=== PATIENT | male | born 1970 | race American Indian/Alaskan Native ===

== ENCOUNTER 2019-01-14 07:00 | Emergency (ER) | payer SELFPAY ==
[2019-01-14 08:02] LABS: Basophils # (Auto) 0.1 K/mm3 (0.0-0.1); Basophils % (Auto) 0.9 % (0.0-1.8); Eosinophils # (Auto) 0.1 K/mm3 (0.0-0.4); Eosinophils % (Auto) 1.1 % (0.0-4.3); Hematocrit 45.9 % (35.5-45.6); Hemoglobin 14.6 gm/dl (11.8-15.2); Lymphocytes # (Auto) 2.6 K/mm3 (1.2-5.4); Lymphocytes % (Auto) 23.2 % (13.4-35.0); Mean Corpuscular HGB Conc 32 % (32-34); Mean Corpuscular Volume 75 fl (84-94); Monocytes # (Auto) 0.9 K/mm3 (0.0-0.8); Monocytes % (Auto) 8.2 % (0.0-7.3); Platelet Count 263 K/mm3 (140-440); Red Blood Count 6.12 M/mm3 (3.65-5.03); Red Cell Distribution Width 16.3 % (13.2-15.2)
[2019-01-14 08:17] LABS: BUN/Creatinine Ratio 10; Blood Urea Nitrogen 11 mg/dL (9-20); Hemolysis Index 59
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
[2019-01-14 08:19] LABS: Bilirubin,Urine NEG (Negative); Color,Urine Yellow (Yellow)
[2019-01-14 08:20] LABS: Blood,Urine SM (Negative); Mucus,Urine FEW /HPF; Urobilinogen,Urine < 2.0 mg/dL (<2.0)
[2019-01-14 08:25] LABS: Amphetamine Screen,Urine PRESUMPTIVE NEGATIVE; Benzodiazepines Screen,Urine PRESUMPTIVE NEGATIVE; Methadone Screen,Urine PRESUMPTIVE NEGATIVE; Opiate Screen,Urine PRESUMPTIVE NEGATIVE
[2019-01-14 08:45] LABS: Cannabinoid Screen,Urine PRESUMPTIVE POSITIVE; Cocaine Screen,Urine PRESUMPTIVE POSITIVE
[2019-01-14] MEDS ORDERED: METOPROLOL PO ONE (23:18)
[2019-01-14] MEDS ORDERED: HABITROL TD ONE (23:19)
[2019-01-15] MEDS ORDERED: ULTRAM PO ONE (09:12)
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
[2019-01-15] MEDS: BUSPAR PO SCH ×2 (12:07→22:09)
[2019-01-15] MEDS: ARIPiprazole PO SCH (12:07)
[2019-01-15] MEDS ORDERED: TYLENOL PO ONE (16:49)
[2019-01-15] MEDS ORDERED: HABITROL TD ONE (16:49)
[2019-01-15] MEDS: MELATONIN PO SCH (22:09)
[2019-01-16 07:51] LABS: Chol/HDL Ratio 3.83 %
[2019-01-16] MEDS ORDERED: METOPROLOL PO SCH (10:00)
[2019-01-16] MEDS ORDERED: NON-FORMULARY (Metoprolol 100 MG) PO SCH (10:00)
[2019-01-16] MEDS: BUSPAR PO SCH ×2 (10:50→22:05)
[2019-01-16] MEDS: ARIPiprazole PO SCH (10:50)
--- NOTE | 2019-01-16 15:31 | Progress Note ---
Subjective - Reason for Consult Consult date: 01/16/19 Reason for consult: follow up - Chief Complaint Chief complaint: "I'm about the same." 48 y.o. AA male who presented to the ER for a mental health evaluation. Today the patient was calm during the assessment. He states he is the same as yesterday and wants to give the medicine time to work. He continues to report paranoia and suicidal ideation. He denies side effects to medication. He says he wants help for his mental condition and cocaine addiction. He reports the cocaine addiction has magnified his mental health symptoms. Cholesterol results reviewed: triglycerides 199 and HDL 36 Mental Status Exam - Vital signs Last Vital Signs Temp 98.2 F 01/16/19 07:34 Pulse 74 01/16/19 10:50 Resp 18 01/16/19 07:34 BP 175/101 01/16/19 10:50 Pulse Ox 98 01/16/19 07:34 - Exam Narrative exam: MSE: Appearance: in hospital attire Behavior: regular eye contact Speech: regular rate and low tone Mood: "depressed, not well" Affect: flat Thought Process: circumstantial Thought Content: denies HI's and VH's, paranoia Motor Activity: sitting in a chair Cognition: A/O x 3 Insight: fair Judgment: poor Assessment and Plan Impression: Unspecified Mood DO with psy features. Substance Use DO (cocaine). Cannabis Use DO. Unspecified Anxiety DO. Today the patient was calm during the assessment. DDx: MDD with psychosis, R/O Bipolar DO with psychosis, Substance Induced Mood/Psychotic DO Recommendation/Plan: Continue 1013 and continue Abilify 5 mg PO daily for psychosis/mood, Melatonin 5 mg PO HS for sleep, and Buspar 7.5 mg PO BID fro anxiety. Discussed possible metabolic side effects from Abilify with the patient, he verbalized understanding. Dispo: The patient was referred to inpatient psy services. Staffed with Dr Bob Morrison.
[2019-01-16] MEDS: MELATONIN PO SCH (22:06)
[2019-01-17 03:55] VITALS: BP 166/109
== END 2019-01-17 08:30 ==
LOC: ED 07:00 → EEVIPCON 07:00 → ED 01-17 08:30
DX: F41.9 Anxiety disorder, unspecified (principal); F25.0 Schizoaffective disorder, bipolar type; I10 Essential (primary) hypertension; F32.9 Major depressive disorder, single episode, unspecified; F12.10 Cannabis abuse, uncomplicated; Z79.899 Other long term (current) drug therapy
CPT/HCPCS: 36415; 80048; 80061; 80307; 80320; 81001; 83036; 85025; G0480